=== PATIENT | female | born 1960 | race Caucasian/White ===

== ENCOUNTER → 2020-09-27 | Outpatient (CLI) | payer OTHER | LOC: RAD 09:56 | DX: M79.645 Pain in left finger(s) (principal); R22.32 Localized swelling, mass and lump, left upper limb; M25.842 Other specified joint disorders, left hand | CPT/HCPCS: 73140 ==

== ENCOUNTER → 2021-04-02 | Outpatient (CLI) | payer OTHER | LOC: EXRD 15:31 | DX: M25.50 Pain in unspecified joint (principal); R79.82 Elevated C-reactive protein (CRP); M15.9 Polyosteoarthritis, unspecified | CPT/HCPCS: 73130 ==